=== PATIENT | female | born 1965 | race Caucasian/White ===

== ENCOUNTER → 2016-05-17 | Outpatient (CLI) | payer OTHER | LOC: KOH-I 10:16 | DX: M25.512 Pain in left shoulder (principal); M25.511 Pain in right shoulder | CPT/HCPCS: 73030 ==

== ENCOUNTER → 2016-07-30 | Outpatient (CLI) | payer OTHER | LOC: LAB 13:44 | DX: E03.9 Hypothyroidism, unspecified (principal); E21.0 Primary hyperparathyroidism | CPT/HCPCS: 36415; 80069; 82330; 83970; 84443 ==

== ENCOUNTER → 2016-08-01 | Outpatient (CLI) | payer OTHER ==
[2016-08-01 16:25] LABS: URINE CALCIUM < 0.6 mg/dL; URINE CREATININE 106.5 mg/dL
[2016-08-01 16:27] LABS: URINE 24 HOUR CALCIUM 9.6 mg/24 (100-300)
== END ==
LOC: LBRF 15:41
PROVIDERS: Internal Medicine
DX: E03.9 Hypothyroidism, unspecified (principal); E21.0 Primary hyperparathyroidism
CPT/HCPCS: 82340; 82570

== ENCOUNTER 2021-05-25 16:39 | Emergency (ER) | payer OTHER ==
[~2021-05-25 16:39] MED LIST: AUGMENTIN 875-1 EACH PO; CETIRIZINE HCL10 MG PO; CYCLOBENZAPRINE10 MG PO; DIFLUCAN150 MG PO; DULOXETINE HCL60 MG PO; FUROSEMIDE40 MG PO; GABAPENTIN600 MG PO; INDERAL TAB 1010 MG PO; IPRAT-ALBUT 0.5-3 ML NEB; LASIX40 MG PO; LEVOFLOXACIN500 MG PO; MELOXICAM15 MG PO; NEBULIZER UNIT INH; POTASSIUM CHLO20 ME2 PO; ROBAXIN 750 MG750 MG PO; VISTARIL 50 MG50 MG PO; ZAROXOLYN/DIULO5 MG PO; ZOCOR 40 MG TAB40 MG PO; ZOFRAN ODT 4 MG4 MG SL; ZYRTEC10 MG PO; ZYVOX600 MG PO
[2021-05-25] MEDS ORDERED: CYCLOBENZAPRINE10 MG PO (17:24)
== END 2021-05-25 17:45 | disposition home or self-care (01) ==
LOC: ER1 16:39
DX: G89.29 Other chronic pain (principal); M54.9 Dorsalgia, unspecified; F17.210 Nicotine dependence, cigarettes, uncomplicated
CPT/HCPCS: 96372; 99283

== ENCOUNTER → 2021-10-31 | Outpatient (CLI) | payer OTHER | LOC: MAMO 10:50 | DX: Z12.31 Encounter for screening mammogram for malignant neoplasm of breast (principal) | CPT/HCPCS: 77063; 77067 ==